=== PATIENT | male | born 1990 | race African-American/Black ===

== ENCOUNTER 2018-11-24 17:06 | Emergency (ER) | payer SELFPAY ==
[2018-11-24 17:17] VITALS: BP 139/73
[2018-11-24] MEDS ORDERED: PENICILLIN V POTASSIUM 500 MG TABLET PO ONE (18:03)
[2018-11-24] MEDS ORDERED: IBUPROFEN 600 MG TABLET PO ONE (18:03)
--- NOTE | 2018-11-24 18:09 | ER Document Report ---
HPI - HPI Patient complains to provider of: tooth pain Time Seen by Provider: 11/24/18 17:35 Pain Level: 5 Context: Patient is a 28-year-old male presents to the emergency department for left lower tooth pain. Patient states he has had left lower tooth pain for "a while." States the pain is increased the last couple of days. Tooth in question is #19 there is an obvious dental cavity noted. Patient states his been over a year since he was at a dentist. Patient's denying any fevers. Patient states he does typically take medication for his blood pressure, HCTZ. States is been out of it for "some time." - CONSTITUTIONAL Constitutional: DENIES: Fever, Chills - EENT EENT: DENIES: Sore Throat, Ear Pain, Eye problems - CARDIOVASCULAR Cardiovascular: DENIES: Chest pain - RESPIRATORY Respiratory: DENIES: Trouble Breathing, Coughing - GASTROINTESTINAL Gastrointestinal: DENIES: Abdominal Pain, Black / Bloody Stools - URINARY Urinary: DENIES: Dysuria, Urgency, Frequency Past Medical History - General Information source: Patient - Social History Smoking Status: Current Every Day Smoker Family History: Reviewed & Not Pertinent Patient has suicidal ideation: No Patient has homicidal ideation: No - Past Medical History Cardiac Medical History: Reports: Hx Hypertension Endocrine Medical History: Denies: Hx Diabetes Mellitus Type 1, Hx Diabetes Mellitus Type 2 Renal/ Medical History: Denies: Hx Peritoneal Dialysis Skin Medical History: Denies Hx MRSA - Immunizations Hx Diphtheria, Pertussis, Tetanus Vaccination: Yes Vertical Provider Document - CONSTITUTIONAL Agree With Documented VS: Yes Notes: GENERAL: Alert, interacts well. No acute distress. HEAD: Normocephalic, atraumatic. EYES: Pupils equal, round, and reactive to light. Extraocular movements intact. ENT: Oral mucosa moist, tongue midline. Multiple teeth missing upper and lower. Tooth in question is #19, obvious dental cavity noted. Gums mildly erythematous, no areas of fluctuation or induration noted. No Ludewig's angina noted. NECK: Full range of motion. Supple. Trachea midline. No lymphadenopathy appreciated LUNGS: Clear to auscultation bilaterally, no wheezes, rales, or rhonchi. No respiratory distress. HEART: Regular rate and rhythm. No murmur ABDOMEN: Soft, non-tender. Non-distended. Bowel sounds present in all 4 quadrants. EXTREMITIES: Moves all 4 extremities spontaneously. No edema, normal radial and dorsalis pedis pulses bilaterally. No cyanosis. BACK: no cervical, thoracic, lumbar midline tenderness. No saddle anesthesia, normal distal neurovascular exam. NEUROLOGICAL: Alert and oriented x3. Normal speech. cranial nerves II through XII grossly intact. PSYCH: Normal affect, normal mood. SKIN: Warm, dry, normal turgor. No rashes or lesions noted. - INFECTION CONTROL TRAVEL OUTSIDE OF THE [place] IN LAST 30 DAYS: No Course - Re-evaluation Re-evalutation: 11/24/18 18:07 Patient was treated with penicillin and Motrin in the emergency department for his generalized tooth pain. Discussed close follow-up with [facility], [facility] for blood pressure management. Patient continues to deny headache, chest pain, shortness of breath, dizziness, weakness. Only voiced complaint is the left lower tooth pain. At this time will discharge with return precautions and follow-up recommendations. Verbal discharge instructions given a the bedside and opportunity for questions given. Medication warnings reviewed. Patient is in agreement with this plan and has verbalized understanding of return precautions and the need for primary care follow-up in the next 24-72 hours. This medical record was dictated with voice recognizing software. There may be grammatical, syntax errors that are unintended. - Vital Signs Vital signs: Temp Pulse Resp BP Pulse Ox 98.0 F 103 H 18 139/73 H 98 11/24/18 17:15 11/24/18 17:15 11/24/18 17:15 11/24/18 17:15 11/24/18 17:15 Discharge - Discharge Clinical Impression: Dental caries, Tooth pain Condition: Stable Disposition: HOME, SELF-CARE Instructions: [facility], Penicillin V K ([facility]), Toothache ([facility]) Additional Instructions: As we discussed you have been seen and treated in the emergency department for pain your left lower tooth. Please be sure you are taking antibiotics as prescribed. Please also make sure to take [id number] Tylenol Motrin for generalized pain. Please make sure you follow-up with the [facility], phone numbers provided in this packet. Please also make sure he follow-up with [facility] or [facility] for blood pressure management. Please return to the emergency room for any further concerns. [facility] [address], [address] Prescriptions: Penicillin V Potassium [Penicillin Vk 500 mg Tablet] 500 mg PO BID #20 tablet Forms: Elevated Blood Pressure, Return to Work Referrals: [facility] [Provider Group] - Follow up as needed [facility] [Provider Group] - Follow up as needed [facility] [Provider Group] - Follow up as needed
== END 2018-11-24 18:14 | disposition home or self-care (01) ==
LOC: ER 17:06
DX: K02.9 Dental caries, unspecified (principal); F17.200 Nicotine dependence, unspecified, uncomplicated; I10 Essential (primary) hypertension
CPT/HCPCS: 99282